=== PATIENT | female | born 1950 | race Caucasian/White ===

== ENCOUNTER 2017-01-24 07:51 | Inpatient (IN) | payer MEDICARE, BC ==
[2017-01-24] MEDS ORDERED: Propofol 200 MG/20 ML SDV ONE (08:28)
[2017-01-24] MEDS ORDERED: Neostigmine Methylsulfate 1 MG/ML 5 ML Syringe ONE (08:28)
[2017-01-24] MEDS ORDERED: Succinylcholine/Normal Saline 200 MG/10 ML Syringe ONE (08:28)
[2017-01-24] MEDS ORDERED: Dexamethasone 4 MG/ML SDV ONE (08:28)
[2017-01-24] MEDS ORDERED: Rocuronium 50 MG/5 ML Vial ONE (08:28)
[2017-01-24] MEDS ORDERED: fentaNYL 250 MCG/5 ML SDV ONE (08:28)
[2017-01-24] MEDS ORDERED: Ondansetron 4 MG/2 ML SDV ONE (08:28)
[2017-01-24] MEDS ORDERED: Scopolamine 1.5 MG Transdermal Patch TOP SCH (08:30)
[2017-01-24] MEDS ORDERED: Dextrose 5%-Lactated Ringers 1,000 ML IV SCH (08:30)
[2017-01-24] MEDS ORDERED: Celecoxib 200 MG Cap PO ONE (08:30)
[2017-01-24] MEDS ORDERED: Gabapentin 300 MG Cap PO ONE (08:30)
[2017-01-24] MEDS ORDERED: Acetaminophen 500 MG Tab PO ONE (08:30)
[2017-01-24] MEDS ORDERED: Levofloxacin 500 MG/20 ML SDV ONE (09:57)
[2017-01-24] MEDS ORDERED: Ketamine 500 MG/5 ML MDV IV ONE (10:00)
[2017-01-24] MEDS ORDERED: Ropivacaine 52 ML, Dexamethasone 8 MG, EPINEPHrine 0.4 MG, Sodium Chloride 0.9% 25.6 ML NERVRT SCH ×4 (10:00)
[2017-01-24] MEDS ORDERED: Lidocaine 2% 100 MG/5 ML Syringe IVPUSH ONE (10:00)
[2017-01-24] MEDS: Levofloxacin/Dextrose 5%-Water 500 MG in Premix Bag 1 BAG IV ONE ×2 (11:14→16:20)
[2017-01-24] MEDS ORDERED: Metoclopramide 10 MG/2 ML SDV IVPUSH PRN (14:04)
[2017-01-24] MEDS ORDERED: diphenhydrAMINE 50 MG/ML SDV IVPUSH PRN (14:04)
[2017-01-24] MEDS ORDERED: Labetalol 20 MG/4 ML Syringe IVPUSH PRN (15:00)
[2017-01-24] MEDS ORDERED: SCOPOLAMINE PATCH ASK TOP SCH (15:00)
[2017-01-24] MEDS ORDERED: Ondansetron 4 MG/2 ML SDV IVPUSH PRN (15:00)
[2017-01-24] MEDS ORDERED: hydrOXYzine HCl 50 MG/ML SDV IM PRN (15:00)
[2017-01-24] MEDS ORDERED: MVI, Adult with Vitamin K 10 ML, Thiamine 200 MG, Chromium/Copper/Mang/Selen/Zn 1 ML in... IV SCH ×4 (16:00)
[2017-01-24] MEDS ORDERED: Pantoprazole 40 MG Vial IVPUSH SCH (16:00)
[2017-01-24] MEDS: Lidocaine 0.4%/D5W 2 GM/500 ML BAG IV SCH (16:04)
[2017-01-24] MEDS: Acetaminophen Soln 650 MG/20.3 ML UD Cup PO SCH ×2 (16:04→19:58)
[2017-01-24] MEDS: Gabapentin 300 MG Cap PO SCH ×2 (16:04→21:04)
[2017-01-24] MEDS: Heparin Sodium 5,000 Units/ML Vial SUBCUT SCH (17:20)
[2017-01-24] MEDS: Ketotifen 0.025% Ophth Soln 5 ML Bottle EYEBOTH SCH (21:03)
[2017-01-24] MEDS: Dextrose 5%-Lactated Ringers 1,000 ML IV SCH (22:12)
[2017-01-24] MEDS ORDERED: Metoprolol Tartrate 25 MG Tab PO ONE (22:30)
[2017-01-24] MEDS: Metoprolol Tartrate 25 MG Tab PO SCH (22:36)
[2017-01-25] MEDS: Acetaminophen Soln 650 MG/20.3 ML UD Cup PO SCH ×4 (01:30→20:31)
[2017-01-25] MEDS: Lidocaine 0.4%/D5W 2 GM/500 ML BAG IV SCH (02:54)
[2017-01-25] MEDS ORDERED: Iohexol 647 MG/ML 50 ML SDV PO STA (03:02)
[2017-01-25] MEDS: Dextrose 5%-Lactated Ringers 1,000 ML IV SCH (03:52)
[2017-01-25] MEDS: Heparin Sodium 5,000 Units/ML Vial SUBCUT SCH ×2 (05:08→18:18)
[2017-01-25] MEDS: Metoprolol Tartrate 25 MG Tab PO SCH ×2 (08:18→20:31)
[2017-01-25] MEDS: Celecoxib 200 MG Cap PO SCH (08:19)
[2017-01-25] MEDS: Ketotifen 0.025% Ophth Soln 5 ML Bottle EYEBOTH SCH (08:20)
[2017-01-25] MEDS: Gabapentin 300 MG Cap PO SCH (08:21)
[2017-01-25] MEDS: SCOPOLAMINE PATCH CHECK TOP SCH (08:25)
--- NOTE | 2017-01-25 08:55 | CR ---
UGI wo KUB HISTORY: Eval RY GBP FINDINGS: Limited upper GI series was obtained without fluoroscopy. Water-soluble contrast was admin istered orally. Immediate along with 15 minute delayed images were obtained. Small gastric pouch is demonstrated. Contrast passes readily through the gastrojejunostomy into loops of jejunum. No obstru ction is identified. There is no contrast extravasation. Surgical drain is noted left upper quadrant . IMPRESSION: No postoperative complication identified status post Adenike-en-Y gastric bypass.
[2017-01-25] MEDS ORDERED: Dextrose 5%-Lactated Ringers 1,000 ML IV SCH (09:00)
[2017-01-25] MEDS ORDERED: Metoprolol Tartrate 25 MG Tab PO SCH (09:00)
[2017-01-25] MEDS ORDERED: FLUoxetine 20 MG Cap PO SCH (09:15)
[2017-01-25] MEDS ORDERED: Lisinopril 20 MG Tab PO SCH (10:00)
[2017-01-25] MEDS ORDERED: Triamcinolone Acetonide 0.1% Oint 15 GM Tube TOP SCH ×4 (10:00→21:00)
[2017-01-25] MEDS ORDERED: Levofloxacin/Dextrose 5%-Water 500 MG in Premix Bag 1 BAG IV SCH (11:00)
[2017-01-25] MEDS ORDERED: Triamcinolone Acetonide 0.1% Crm 15 GM Tube TOP PRN (12:20)
[2017-01-25] MEDS ORDERED: Ketotifen 0.025% Ophth Soln 5 ML Bottle EYELF PRN (12:22)
[2017-01-25] MEDS: Hydrochlorothiazide 12.5 MG Cap PO SCH (12:35)
[2017-01-25] MEDS: Lisinopril 20 MG Tab PO SCH (12:35)
[2017-01-25] MEDS: Gabapentin 250 MG/5 ML Solution ML 470 ML Bottle PO SCH ×2 (15:14→20:36)
[2017-01-25] MEDS ORDERED: Pantoprazole 40 MG Tab.CR PO SCH (16:30)
--- NOTE | 2017-01-25 20:45 | PN ---
DATE OF SERVICE: 01/25/2017 SUBJECTIVE: Puja is postop day 1 following a Adenike-en-Y gastric bypass surgery. Her oral intake was 450, she had 55 out of her TANVI drain and she had a total of 3600 out. She denies any pain. No other associated signs and symptoms. OBJECTIVE: GENERAL: Puja Hatch is a 66-year-old female. She is alert and orientated. SKIN: Warm and dry. Color is good. VITAL SIGNS: TPR 97.3, 68, 16, blood pressure 162/75. HEENT: Negative. NECK: Supple. HEART: Regular rate and rhythm. LUNGS: Clear. ABDOMEN: Dressings dry and intact. TANVI drain intact. Abdominal binder is on. EXTREMITIES: Without peripheral edema. ASSESSMENT: Laparoscopic Adenike-en-Y gastric bypass surgery. PLAN: Step to get no solids, saline lock IV if oral intake 1200 mL. Dressing off, january shower. Home medications were started, Prozac 40 mg Monday, Monday, and Monday, and Prozac 20 mg Monday, , Monday, and Monday, Lopressor 12.5 mg p.o. every 12 hours, lisinopril HCTZ 20/12.5, one tablet daily. Good pulmonary toilet encouraged. We will evaluate p.r.n. or in the a.m. Maida Pepe PA-C /[id number]
[2017-01-26] MEDS: Acetaminophen Soln 650 MG/20.3 ML UD Cup PO SCH ×2 (02:11→07:42)
[2017-01-26] MEDS: Heparin Sodium 5,000 Units/ML Vial SUBCUT SCH (05:53)
[2017-01-26 07:36] VITALS: BP 127/62
[2017-01-26] MEDS: Lisinopril 20 MG Tab PO SCH (08:07)
[2017-01-26] MEDS: Celecoxib 200 MG Cap PO SCH (08:08)
[2017-01-26] MEDS: Hydrochlorothiazide 12.5 MG Cap PO SCH (08:08)
[2017-01-26] MEDS: Metoprolol Tartrate 25 MG Tab PO SCH (08:08)
[2017-01-26] MEDS: SCOPOLAMINE PATCH CHECK TOP SCH (08:09)
[2017-01-26] MEDS: Gabapentin 250 MG/5 ML Solution ML 470 ML Bottle PO SCH (08:18)
[2017-01-26] MEDS ORDERED: Cyanocobalamin (Vitamin B12) 1,000 MCG/ML SDV IM ONE (09:00)
[2017-01-26] MEDS ORDERED: OLOPATADINE 0.2% SCH (09:00)
[2017-01-26] MEDS ORDERED: FLUoxetine 20 MG Cap PO SCH (09:00)
--- NOTE | 2017-01-27 01:30 | DISCH ---
ADMISSION DIAGNOSES: Morbid obesity, depression, cardiomegaly, mitral valve insufficiency, and aortic valve insufficiency, disease of the tricuspid valve, cardiac dysrhythmia, osteoarthrosis - primarily lower leg, obesity, hypertension, sleep apnea, chronic kidney disease stage 3, pain of left hip, and maladaptive health behaviors affecting medical condition. DISCHARGE DIAGNOSES: Laparoscopic Adenike-en-Y gastric bypass surgery, liver biopsy, and repair of paraesophageal diaphragmatic hernia, and excision of mediastinal lipoma for morbid obesity, hepatomegaly, diaphragmatic hernia, and mediastinal lipoma. Date of surgery was 01/24/2017. HISTORY: Puja Hatch is a 66-year-old female admitted for Adenike-en-Y gastric bypass surgery. She has had a longstanding history of morbid obesity and increasing comorbidities. After preoperative evaluation and discussion of possible risks and possible complications, she wished to proceed with surgical procedure. HOSPITAL COURSE: Puja had her surgery on 01/24/2017. She had no operative complications. On postop day #1, she was advanced from a step 1 to step 2 gastric bypass diet without cereal. Her pain was controlled. On postop day #2, she was ready to be discharged to home. She received adequate dietary instruction and B12 1000 mcg IM injection. Her activity was good and she had adequate dietary instruction. PHYSICAL EXAMINATION: GENERAL: Puja Hatch is a 66-year-old female. VITAL SIGNS: Height is 5 feet 1.5 inches, weight is 229 pounds. TPR is 97.9, 63, 18. Blood pressure 127/62. HEENT: Negative. NECK: Supple. HEART: Regular rate and rhythm. LUNGS: Clear. ABDOMEN: Incisions look good. Abdominal binder has been on. EXTREMITIES: Without peripheral edema. DISPOSITION: Discharged to home. CONDITION: Stable and improving. FOLLOWUP APPOINTMENTS: Maida Pepe PA-C, on 02/01/2017 at 9:00 a.m. DIET: Step-2 gastric bypass diet without cereal for three weeks. Drink 8 to 10 glasses of water a day. ACTIVITY: No lifting greater than 10 pounds for 2 weeks. Walk 6 times daily inside your home. Shower bathing, may shower. Keep operative sites clean and dry. Wear abdominal binder for 2 weeks and then as tolerated. Notify provider if any fever, increased pain, nausea, or vomiting. Use incentive spirometer 10 times every hour while awake.
--- NOTE | 2017-01-29 14:05 | OR ---
DATE OF PROCEDURE: 01/24/2017 PREOPERATIVE DIAGNOSIS: Morbid obesity. POSTOPERATIVE DIAGNOSES: 1. Morbid obesity. 2. Marked hepatomegaly. 3. Paraesophageal diaphragmatic hernia. 4. Mediastinal lipoma. OPERATIVE PROCEDURES: 1. Laparoscopic Adenike-en-Y gastric bypass, long limb gastroenterostomy (69778). 2. Geo-Cut needle liver biopsy (12187). 3. Repair of paraesophageal diaphragmatic hernia (25766). 4. Excision of mediastinal lipoma (33060). ANESTHESIA: General. INDICATION FOR PROCEDURE: This is a 66-year-old female presenting here with longstanding morbid obesity and increasingly significant comorbidities. After preoperative evaluation and discussion, she wished to proceed with a gastric bypass procedure. Potential risks including bleeding, infection, leaks from various GI tract closures, problems with bowel obstruction over time as well as possibility of cardiopulmonary, septic, or hemorrhagic complications leading to were all discussed, and the patient wishes to proceed. DETAILS OF PROCEDURE: The patient was taken to the operating room and placed in a supine position. After general endotracheal anesthesia was induced, she was converted to a lithotomy position. Parmar catheter was inserted along the gastrointestinal balloon catheter, and the abdomen prepped and draped. At 15 cm inferior, 5 cm left of xiphoid process, a transverse incision was made and the peritoneal cavity entered under direct vision with an Optiview trocar and inflated to 15 mmHg pressure with CO2. Laparoscope was then reinserted. No underlying trocar insertion site injuries were seen. Following this, 5 additional trocars were placed across the upper and mid abdomen. General exploration was undertaken. The patient was noted to have a marked hepatomegaly with the liver being grossly fatty infiltrated and roughly 2 to 3 times normal volume. A Geo-Cut needle biopsy was obtained from the left lobe of the liver, minimal bleeding from the biopsy sites was controlled with electrocautery. At this point, the omentum was divided in the midline up to the level of the transverse colon. This allowed identification of the small bowel to the ligament of Treitz. Small bowel was then traced out 200 cm distal to that point, was divided transversely with a MEKA stapler. Small bowel was then traced out an additional 200 cm where the [id number] enteroenterostomy was accomplished with the internal firing of the Endo-MEKA 60 mm stapler. The common opening was then closed transversely with same stapler, angles of anastomosis and mesenteric defect reinforced and closed with 0 Ethibond stitch and fibrin sealant. The divided end of the Adenike limb was then able to be mobilized up in an antecolic manner to the level of the gastroesophageal junction without tension. The liver was then retracted anteriorly. The patient was noted to have a moderate-sized paraesophageal diaphragmatic hernia with prolapse of segment of the gastric fundus, perigastric fat in the plane anterior to the course of the esophagus. This was reduced to the peritoneum to the right and anterior to the left of the esophagogastric junction. It was then divided and anterior repair of the diaphragmatic hernia was then accomplished with 0 Ethibond stitch reinforced with PTFE pledgets. During the course of the dissection of the esophagus, a mediastinal lipoma was then encountered and to facilitate more adequate repair as well as confirm histologic status, the mediastinal lipoma was excised and delivered from the field. At this point, the gastrointestinal balloon catheter was inflated at 15 mL and pulled up snugly against the EG junction, gastric wall over the apex, balloon was then marked with electrocautery, and balloon catheter deflated and pulled up from the esophagus. The lesser omental tissue adjacent to gastric cardia was then incised allowing dissection behind the stomach at that level. Pouch formation was initiated with a transverse firing of the MEKA stapler at the level of the cauterized erika in the gastric pouch, and then completed with 2 additional firings of the MEKA stapler up to and through the angle of His. Upon completion of the pouch, both staple lines were noted to be intact. The anvil of a 21 mm EEA stapler was then attached to a [place] sump-type tube. The latter was brought down through the mouth and out through a small opening in the gastric pouch, allowing the anvil likewise to be pulled down to within the gastric pouch. The divided end of the Adenike limb was then opened, the main body of the EEA stapler was passed several centimeters into the Adenike limb, brought up the anvil, united with it, thus creating the gastrojejunostomy. It was notable that the small bowel was exceptionally thin with one being able to more or less read the writing on the surface of the EEA stapler when it was in within the bowel. After the blind end was stapled off, the gastrojejunostomy was then reinforced with some 3-0 Vicryl seromuscular following with fibrin sealant. Leak test was accomplished with injection of 120 mL of air in the gastric pouch while submerged with cefoxitin-containing saline solution. No leaks were identified. Two David-Mason drains were then placed adjacent to gastrojejunostomy, taken out through subcostal trocar sites. No further problems were noted. Trocars were removed, the peritoneal cavity deflated. Incisions were closed with some 4-0 Vicryl skin stitch and then drain affixed with some 2-0 Vicryl stitch. The patient was taken to the recovery room in satisfactory condition. Jeremias Vazquez MD /[id number]
== END 2017-01-26 10:26 | disposition home or self-care (01) | DRG 621 ==
LOC: JP.SDS 07:51 → JP.MS 07:51 → EDSTATUS 11:45 → JP.2SS 13:45
PROVIDERS: ADMIT Surgery; ATTEND Surgery
PROC: 0D164ZA Bypass Stomach to Jejunum, Percutaneous Endoscopic Approach (ICD-10-PCS; principal; 2017-01-24)
PROC: 0BQR4ZZ (ICD-10-PCS; principal; 2017-01-24)
PROC: 0DB80ZZ Excision of Small Intestine, Open Approach (ICD-10-PCS; principal; 2017-01-24)
PROC: 0WBC4ZX Excision of Mediastinum, Percutaneous Endoscopic Approach, Diagnostic (ICD-10-PCS; principal; 2017-01-24)
PROC: 0DB63ZZ Excision of Stomach, Percutaneous Approach (ICD-10-PCS; principal; 2017-01-24)
PROC: 0FB24ZX Excision of Left Lobe Liver, Percutaneous Endoscopic Approach, Diagnostic (ICD-10-PCS; principal; 2017-01-24)
PROC: 0BQS4ZZ (ICD-10-PCS; principal; 2017-01-24)
DX: E66.01 Morbid (severe) obesity due to excess calories (principal); Z68.41 Body mass index [BMI] 40.0-44.9, adult; K44.9 Diaphragmatic hernia without obstruction or gangrene; R16.0 Hepatomegaly, not elsewhere classified; D17.4 Benign lipomatous neoplasm of intrathoracic organs; K76.0 Fatty (change of) liver, not elsewhere classified; Z88.8 Allergy status to other drugs, medicaments and biological substances; M17.0 Bilateral primary osteoarthritis of knee; M16.0 Bilateral primary osteoarthritis of hip; I10 Essential (primary) hypertension
CPT/HCPCS: 36415; 74240; 74240-26; 86850; 86900; 86901; 88304; 88307; 88313; A9270-GY; C9113; J0171; J1100; J1644; J1956; J2001; J2405; J2704; J2795; J3010; J3411; J3420; J7030; J7042; J7050; Q9967

== ENCOUNTER 2017-03-16 07:30 | Day surgery (SDC) | payer MEDICARE, BC ==
[2017-03-16] MEDS ORDERED: Lactated Ringers 1,000 ML IV SCH (08:15)
[2017-03-16] MEDS ORDERED: Midazolam 1 MG/ML 2 ML SDV ONE (08:26)
[2017-03-16] MEDS ORDERED: fentaNYL 100 MCG/2 ML SDV ONE (08:26)
[2017-03-16] MEDS ORDERED: Propofol 200 MG/20 ML SDV ONE (08:26)
[2017-03-16] MEDS ORDERED: Cyanocobalamin (Vitamin B12) 1,000 MCG/ML SDV IM ONE (08:30)
[2017-03-16] MEDS ORDERED: Glycopyrrolate 0.2 MG/ML 2 ML SYRINGE IVPUSH ONE (08:45)
[2017-03-16] MEDS ORDERED: MVI, Adult with Vitamin K 10 ML, Thiamine 200 MG, Chromium/Copper/Mang/Selen/Zn 1 ML in... IV ONE ×4 (09:45)
[2017-03-16 12:13] VITALS: BP 160/83
--- NOTE | 2017-03-22 19:35 | OR ---
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 POSTOPERATIVE DIAGNOSIS: Stricture gastrojejunostomy. OPERATIVE PROCEDURE: Upper GI endoscopy with dilation gastrojejunostomy (51189). ANESTHESIA: IV sedation. INDICATION FOR PROCEDURE: This is a 66-year-old female presenting with symptoms suggestive of stricturing at her gastrojejunostomy. Plan is to proceed with an upper GI endoscopy with dilation as indicated. Potential risks including bleeding and perforation were discussed, and the patient wishes to proceed. DETAILS OF PROCEDURE: The patient was taken to the operating room and placed in the left lower decubitus position. IV sedation was administered, after which the upper GI endoscope was passed orally through the esophagus and into the gastric pouch. No retained food or fluid was noted. The patient was noted to have a moderately tight stricture at the gastrojejunostomy. A Bard gastrointestinal catheter was centered across the anastomosis with fluoroscopic surveillance and inflated to 36-Finnish size, this was held in position for 1 minute, after which the balloon catheter was deflated and withdrawn. The scope could easily then be passed through the anastomosis. No complications were noted. The patient was taken to the recovery room in satisfactory condition. Jeremias Vazquez MD /[id number]
== END 2017-03-16 12:14 | disposition home or self-care (01) ==
LOC: JP.SDS 07:30
PROVIDERS: ATTEND Surgery
DX: K91.89 Other postprocedural complications and disorders of digestive system (principal); I12.9 Hypertensive chronic kidney disease with stage 1 through stage 4 chronic kidney disease, or unspecified chronic kidney disease; N18.9 Chronic kidney disease, unspecified; G47.33 Obstructive sleep apnea (adult) (pediatric); F32.9 Major depressive disorder, single episode, unspecified; Z88.1 Allergy status to other antibiotic agents
CPT/HCPCS: 43245; J2250; J2704; J3010; J3411; J3420; J7120